=== PATIENT | female | born 1965 | race Caucasian/White ===

== ENCOUNTER 2018-04-10 17:09 | Emergency (ER) | payer MEDICAID ==
--- NOTE | 2018-04-10 18:34 | ED Physician Documentation ---
PD HPI BACK PAIN - Stated complaint Stated Complaint: RIGHT BACK PAIN - Chief complaint Chief Complaint: Back Pain - History obtained from History obtained from: Patient - History of Present Illness Timing - onset: How many days ago (4) Timing - duration: Days (4) Timing - details: Gradual onset, Still present Location: Upper, Right (infrascapular) Quality: Pain, Spasm Associated symptoms: No: Fever, Weakness, Numbness Worsened by: Movement, Palpation Contributing factors: No: Lifting, Twisting, Trauma Similar symptoms before: Has not had sx before Recently seen: Not recently seen Review of Systems Constitutional: denies: Fever, Chills, Myalgias Nose: denies: Rhinorrhea / runny nose, Congestion Throat: denies: Sore throat Cardiac: denies: Chest pain / pressure, Palpitations Respiratory: denies: Dyspnea, Cough, Wheezing GI: denies: Abdominal Pain, Nausea, Vomiting Skin: denies: Rash Neurologic: denies: Focal weakness, Numbness PD PAST MEDICAL HISTORY - Past Medical History Past Medical History: No Cardiovascular: None Respiratory: None - Past Surgical History Past Surgical History: No - Present Medications Home Medications: Ambulatory Orders Medication Instructions Recorded Confirmed Hydrocodone/Acetaminophen 04/10/18 [Hydrocodone-Acetamin 10-325 mg] Hydrocodone/Acetaminophen [[place] 1 each PO Q6H PRN #15 tablet 04/10/18 5-325 Tablet] Ibuprofen 04/10/18 Naproxen 500 mg PO BID #20 tablet 04/10/18 - Allergies Allergies/Adverse Reactions: Allergies Allergy/AdvReac Type Severity Reaction Status Date / Time Penicillins Allergy Rash Verified 04/10/18 17:35 - Social History Does the pt smoke?: No Smoking Status: Never smoker Does the pt drink ETOH?: No Does the pt have substance abuse?: No - Family History Family history: reports: Non contributory - Immunizations Immunizations are current?: Yes - POLST Patient has POLST: No PD ED PE NORMAL - Vitals Vital signs reviewed: Yes - General General: Alert and oriented X 3, No acute distress, Well developed/nourished - HEENT HEENT: Moist mucous membranes, Pharynx benign - Neck Neck: Supple, no meningeal sign, No adenopathy - Cardiac Cardiac: RRR, No murmur - Respiratory Respiratory: Clear bilaterally - Abdomen Abdomen: Soft, Non tender - Back Back: No CVA TTP, No spinal TTP, Other (tender at muscles infrascapular without rash, redness, sores. ) Results - Vitals Vitals: Oxygen O2 Source Room air PD MEDICAL DECISION MAKING - ED course Complexity details: reviewed results, considered differential (seems muscular with pain on movement of shoulder blade and with palpation. Has pain with deep breathing too, so got CXR which was normal. PERC neg except age just 52 (so >50)), d/w patient Departure - Departure Disposition: 01 Home, Self Care Clinical Impression: Acute thoracic back pain Qualifiers: Back pain laterality: right Qualified Code(s): M54.6 - Pain in thoracic spine Condition: Stable Record reviewed to determine appropriate education?: Yes Instructions: ED Neck Back Pain General Prescriptions: Hydrocodone/Acetaminophen [[place] 5-325 Tablet] 1 each PO Q6H PRN #15 tablet PRN Reason: Pain Naproxen 500 mg PO BID #20 tablet Comments: Your chest x-ray appears normal without any abnormality of the lungs or ribs. Presume this is a muscular problem with a local tenderness. Consider changing anti-inflammatories from ibuprofen to naproxen see if it might work a little bit better. To that add hydrocodone pain medicine if needed. Recheck if not impro lori over the next several days to week or so. Avoid heavy lifting and push pull presuming some muscular component. Discharge Date/Time: 04/10/18 19:37
[2018-04-10] MEDS ORDERED: HYDROcod/ACETAM 5/325 MG TABLET PO STA (18:51)
[2018-04-10] MEDS ORDERED: LIDOCAINE PATCH 5% TOP STA (18:51)
--- NOTE | 2018-04-10 19:17 | XRAY Report ---
Reason: right posterior scapular pain 4 days, dyspnea Procedure Date: 04/10/2018 Accession Number: [id number] / [id number] Procedure: XR - Chest 2 View X-Ray CPT Code: 99754 FULL RESULT: EXAM: CHEST RADIOGRAPHY EXAM DATE: 04/10/2018 07:03 PM. CLINICAL HISTORY: Right posterior scapular pain 4 days, dyspnea. COMPARISON: None. TECHNIQUE: 2 views. FINDINGS: Lungs/Pleura: No focal opacities evident. No pleural effusion. No pneumothorax. Normal volumes. Mediastinum: Heart and mediastinal contours are unremarkable. Other: None. IMPRESSION: Normal 2-view chest radiography. [facility]
[2018-04-10 19:37] VITALS: BP 113/76
== END 2018-04-10 19:37 | disposition home or self-care (01) ==
LOC: ED 17:09
DX: M54.6 Pain in thoracic spine (principal); R07.1 Chest pain on breathing
CPT/HCPCS: 71046; 99283; A9270

== ENCOUNTER 2018-05-17 07:14 | Outpatient (CLI) | payer MEDICAID ==
[2018-05-17 13:36] LABS: BASOPHILS # (AUTO) 0.1 10^3/uL (0.0-0.1); BASOPHILS % (AUTO) 1.6 %; EOSINOPHILS # (AUTO) 0.2 10^3/uL (0.0-0.7); EOSINOPHILS % (AUTO) 2.5 %; HGB - HEMOGLOBIN 14.8 g/dL (12.0-16.0); LYMPHOCYTES # (AUTO) 2.3 10^3/uL (1.5-3.5); LYMPHOCYTES % (AUTO) 31.6 %; MEAN CORPUSCULAR HEMOGLOBIN 31.4 pg (27.0-31.0); MEAN CORPUSCULAR HGB CONC 33.8 g/dL (32.0-36.0); MEAN CORPUSCULAR VOLUME 92.7 fL (81.0-99.0); MEAN PLATELET VOLUME 8.4 fL (7.9-10.8); MONOCYTES # (AUTO) 0.6 10^3/uL (0.0-1.0); MONOCYTES % (AUTO) 8.8 %; NEUTROPHILS % (AUTO) 55.5 %; PLT - PLATELET COUNT 258 10^3/uL (130-450); RED BLOOD COUNT 4.71 10^6/uL (4.20-5.40); RED CELL DISTRIBUTION WIDTH 14.6 % (12.0-15.0); WHITE BLOOD COUNT 7.3 x10^3/uL (4.8-10.8)
[2018-05-17 13:46] LABS: ALBUMIN 4.1 g/dL (3.2-5.5); ALBUMIN/GLOBULIN RATIO 1.3 (1.0-2.2); ALKALINE PHOSPHATASE 76 IU/L (42-121); ALT ALANINE AMINOTRANSFERASE 46 IU/L (10-60); AST ASPARTATE AMINOTRANSFERASE 29 IU/L (10-42); BILIRUBIN,TOTAL 0.8 mg/dL (0.2-1.0); BUN - BLOOD UREA NITROGEN 11 mg/dL (6-20); CALCIUM 9.1 mg/dL (8.5-10.3); CARBON DIOXIDE - CO2 27 mmol/L (21-32); CHLORIDE 104 mmol/L (101-111); CHOL/HDL RATIO 3.2 (<4.4); CHOLESTEROL 199 mg/dL; CREATININE 0.6 mg/dL (0.4-1.0); GFR - MDRD 105 (>89); GLUCOSE 82 mg/dL (70-100); HDL CHOLESTEROL 63 mg/dL; LDL CHOLESTEROL,CALCULATED 93 mg/dL; LDL/HDL RATIO 1.5 (<4.4); SODIUM 139 mmol/L (135-145); TOTAL PROTEIN 7.3 g/dL (6.7-8.2); VLDL CHOLESTEROL 43 mg/dL
== END 2018-05-17 23:59 | disposition home or self-care (01) ==
LOC: LAB.N 07:14
PROVIDERS: ATTEND Nurse Practitioner Gerontology
DX: Z13.9 Encounter for screening, unspecified (principal)
CPT/HCPCS: 36415; 80053; 80061; 83721; 84443; 85025

== ENCOUNTER 2018-05-19 10:20 | Outpatient (CLI) | payer MEDICAID ==
--- NOTE | 2018-05-25 08:22 | Mammography Report ---
Reason: SCREENING MAMMO Procedure Date: 05/19/2018 Accession Number: [id number] / [id number] Procedure: MGN - Screening Mammo Dig Bilat CPT Code: FULL RESULT: EXAM: Screening Mammo Dig Bilat DATE: 05/19/2018 10:37 AM CLINICAL HISTORY: Screening encounter. Family history of breast cancer in a grandmother at the age of 54. TECHNIQUE: Bilateral CC and MLO views were obtained. COMPARISON: None FINDINGS: The breasts demonstrate heterogeneously dense fibroglandular parenchyma bilaterally. There are coarse typically benign calcifications. No suspicious masses, clustered microcalcifications, or regions of architectural distortion are identified. IMPRESSION: Benign findings RECOMMENDATION: Routine annual screening unless otherwise clinically indicated. BIRADS CATEGORY 2: Benign findings STANDARD QUALIFYING STATEMENTS: 1. This examination was reviewed with the aid of Computer-Aided Detection (CAD). 2. A negative or benign imaging report should not delay biopsy if clinically suspicious findings are present. Consider surgical consultation if warrented. More than 5% of cancers are not identified by imaging. 3. Dense breasts may obscure an underlying neoplasm.
== END 2018-05-19 10:21 | disposition home or self-care (01) ==
LOC: DI.N 10:20
DX: Z12.31 Encounter for screening mammogram for malignant neoplasm of breast (principal); Z80.3 Family history of malignant neoplasm of breast
CPT/HCPCS: 77067

== ENCOUNTER 2018-09-08 00:07 | Emergency (ER) | payer MEDICAID ==
[2018-09-08 00:23] VITALS: BP 97/81
--- NOTE | 2018-09-08 01:11 | ED Physician Documentation ---
PD HPI HEENT - Stated complaint Stated Complaint: SORE THROAT,HEADACHE,FEVER - Chief complaint Chief Complaint: Heent - History obtained from History obtained from: Patient - History of Present Illness Timing - onset: How many days ago (1-2) Timing - duration: Days Timing - details: Gradual onset, Waxing and waning Location: Sinuses, Throat Improves: Nothing Worsens: Other (no exacerbating factors) Associated symptoms: Fever, Congestion, Headache, Cough Similar symptoms before: Has not had sx before Recently seen: Not recently seen - Additional information Additional information: c/o 1-2 days generalized myalgias, sore throat, productive cough, subjective fevers (did not take temperature at home but has felt like she has had fevers and she is febrile in ED at this time). Review of Systems Constitutional: reports: Fever, Chills, Myalgias, Fatigue, Sweats Ears: denies: Ear pain Nose: reports: Congestion, Sinus pressure / pain Throat: reports: Sore throat Respiratory: reports: Cough GI: denies: Abdominal Pain PD PAST MEDICAL HISTORY - Past Medical History Cardiovascular: None Respiratory: None - Past Surgical History Past Surgical History: No - Present Medications Home Medications: Ambulatory Orders Medication Instructions Recorded Confirmed Hydrocodone/Acetaminophen 04/10/18 [Hydrocodone-Acetamin 10-325 mg] Hydrocodone/Acetaminophen [[place] 1 each PO Q6H PRN #15 tablet 04/10/18 5-325 Tablet] Ibuprofen 04/10/18 Naproxen 500 mg PO BID #20 tablet 04/10/18 Azithromycin [Zithromax] 250 mg PO DAILY #4 tablet 09/08/18 HYDROcod/ACETAM 5/325 [[place] 5/325] 1 - 2 ea PO Q6H PRN #15 tablet 09/08/18 - Allergies Allergies/Adverse Reactions: Allergies Allergy/AdvReac Type Severity Reaction Status Date / Time Penicillins Allergy Rash Verified 04/10/18 17:35 acetaminophen AdvReac Unknown Verified 09/08/18 00:23 [From Tylenol-Codeine] codeine AdvReac Unknown Verified 09/08/18 00:23 [From Tylenol-Codeine] - Social History Does the pt smoke?: No Smoking Status: Never smoker Does the pt drink ETOH?: Yes Does the pt have substance abuse?: No - Immunizations Immunizations are current?: Yes - POLST Patient has POLST: No PD ED PE NORMAL - Vitals Vital signs reviewed: Yes - General General: Alert and oriented X 3, No acute distress, Well developed/nourished - HEENT HEENT: Ears normal, Moist mucous membranes, Other (moderate posterior oropharyngeal erythema without exudate) - Neck Neck: Supple, no meningeal sign - Cardiac Cardiac: RRR, No murmur - Respiratory Respiratory: No respiratory distress, Clear bilaterally Results - Vitals Vitals: Vital Signs - 24 hr 09/08/18 00:21 Temperature 38.2 C H Heart Rate 125 H Respiratory 18 Rate Blood Pressure 97/81 H O2 Saturation 96 Oxygen O2 Source Room air - Labs Labs: Laboratory Tests 09/08/18 00:20 Group A Strep Rapid Negative PD MEDICAL DECISION MAKING - ED course Complexity details: reviewed results, considered differential, d/w patient Departure - Departure Disposition: 01 Home, Self Care Clinical Impression: Pharyngitis Condition: Good Health Concerns: sore throat, cough, fever Plan of Treatment: antibiotics, analgesics, rest Care Goals: resolution of symptoms and relief of pain Assessment: see diagnoses Instructions: ED Strep Pharyngitis Poss Follow-Up: Analisa Hassan ARNP [Primary Care Provider] - Prescriptions: Azithromycin [Zithromax] 250 mg PO DAILY #4 tablet HYDROcod/ACETAM 5/325 [[place] 5/325] 1 - 2 ea PO Q6H PRN #15 tablet PRN Reason: Pain Forms: Activity restrictions Discharge Date/Time: 09/08/18 01:48
[2018-09-08] MEDS ORDERED: HYDROcod/ACETAM 5/325 MG TABLET PO STA (01:41)
[2018-09-08] MEDS ORDERED: AZITHROMYCIN 250 MG TABLET PO STA (01:41)
== END 2018-09-08 01:48 | disposition home or self-care (01) ==
LOC: ED 00:07
DX: J02.9 Acute pharyngitis, unspecified (principal)
CPT/HCPCS: 87070; 87430; 99283; A9270